=== PATIENT | female | born 1970 | race Caucasian/White ===

== ENCOUNTER 2017-07-05 10:08 | Emergency (ER) | payer OTHER ==
[2017-07-05 10:20] VITALS: BP 123/78; PULSE 67; TEMP 98.6; BMI 24.5
--- NOTE | 2017-07-05 11:03 | PDOC ---
History of Present Illness - General Chief Complaint: Back Pain Stated Complaint: BACK SPASM Time Seen by Provider: 07/05/17 11:02 History Source: Patient Exam Limitations: No Limitations - History of Present Illness Initial Comments: 07/05/17 11:12 Patient is a 47-year-old female with no past medical history who presents to the emergency department today complaining of 2 days of back spasm. Patient states that she feels her back spasm started due to sleeping in the same position all night. She states that she has been helping her who wasn't feeling well. Denies trauma, fall. She states that when walking she'll feel the spasm and have to stop. She's been taking ibuprofen and naproxen for her pain with little relief. Denies fevers, chills, saddle anesthesia, bladder or bowel incontinence. Past History - Travel Traveled outside of the country in the last 30 days: No Close contact w/someone who was outside of country & ill: No - Past Medical History Allergies/Adverse Reactions: Allergies Allergy/AdvReac Type Severity Reaction Status Date / Time No Known Allergies Allergy Verified 07/05/17 10:16 Home Medications: Ambulatory Orders Cyclobenzaprine HCl [Flexeril -] 10 mg PO HS #10 tablet 07/05/17 Ibuprofen 800 mg PO TID #30 tablet 07/05/17 Levothyroxine Sodium [Synthroid] 88 mcg PO ASDIR 07/05/17 COPD: No Thyroid Disease: Yes (HYPO) - Suicide/Smoking/Psychosocial Hx Smoking History: Never smoked Hx Alcohol Use: Yes (SOCIAL) Drug/Substance Use Hx: No Substance Use Type: None Review of Systems - Review of Systems Able to Perform ROS?: Yes Is the patient limited Vietnamese proficient: No Constitutional: No: Chills, Fever, Weakness : No: Burning, Incontinence Musculoskeletal: Yes: Back Pain, Muscle Pain. No: Neck Pain Neurological: No: Numbness, Paresthesia, Tingling, Weakness, Unsteady Gait All Other Systems: Reviewed and Negative *Physical Exam - Vital Signs Last Vital Signs Temp Pulse Resp BP Pulse Ox 98.6 F 67 20 123/78 98 07/05/17 10:12 07/05/17 10:12 07/05/17 10:12 07/05/17 10:12 07/05/17 10:12 - Physical Exam Comments: 07/05/17 11:15 GENERAL: Well developed, well nourished. Awake and alert. No acute distress. HEENT: Normocephalic, atraumatic. PERRLA, EOMI. No conjunctival pallor. Sclera are non- icteric. Moist mucous membranes. Oropharynx is clear. NECK: Supple. Full ROM. No JVD. Carotid pulses 2+ and symmetric, without bruits. No thyromegaly. No lymphadenopathy. CARDIOVASCULAR: Regular rate and rhythm. No murmurs, rubs, or gallops. Distal pulses are 2+ and symmetric. PULMONARY: No evidence of respiratory distress. Lungs clear to auscultation bilaterally. No wheezing, rales or rhonchi. ABDOMINAL: Soft. Non-tender. Non-distended. No rebound or guarding. No organomegaly. Normoactive bowel sounds. MUSCULOSKELETAL Decreased ROM of the back with flexion of the back. TTP of the R and L paraspinous muscles at the level of L1-L3. (-) flip test b/l. Normal range of motion at all other joints. No bony deformities. No CVA tenderness. EXTREMITIES: No cyanosis. No clubbing. No edema. No calf tenderness. SKIN: Warm and dry. Normal capillary refill. No rashes. No jaundice. NEUROLOGICAL: Alert, awake, appropriate. Cranial nerves 2-12 intact. No deficits to light touch and temperature in face, upper extremities and lower extremities. No motor deficits in the in face, upper extremities and lower extremities. Normoreflexic in the upper and lower extremities. Normal speech. Toes are down- going bilaterally. Gait is normal without ataxia. PSYCHIATRIC: Cooperative. Good eye contact. Appropriate mood and affect. Medical Decision Making - Medical Decision Making 07/05/17 11:16 Patient is a 47-year-old female with no past medical history who presents with 2 days of back spasm. Palpable spasm to the right lower and left lower paraspinous muscles with a negative flip test. No midline tendereness. No concerning physical findings or review of history. We'll treat with Toradol at this time. Send home with prescription for Flexeril. Will DC home at this time with ortho follow-up. *DC/Admit/Observation/Transfer Diagnosis at time of Disposition: Low back pain Qualifiers: Chronicity: acute Back pain laterality: bilateral Sciatica presence: without sciatica Qualified Code(s): M54.5 - Low back pain - Discharge Dispostion Disposition: HOME Condition at time of disposition: Good Admit: No - Prescriptions Prescriptions: Cyclobenzaprine HCl [Flexeril -] 10 mg PO HS #10 tablet Ibuprofen 800 mg PO TID #30 tablet - Referrals Referrals: Krzysztof Zhang MD [Staff Physician] - Bobby Covarrubias MD [Staff Physician] - - Patient Instructions Printed Discharge Instructions: DI for Low Back Pain Additional Instructions: You have low back pain due to a muscle spasm. Please take ibuprofen 800 mg 3 times a day not to exceed 3000 mg a day. You were also prescribed Flexeril. Please take this medication every 8 hours for the first day. Then take the medication before you go to bed. Do not drive after taking this medication as it may make you sleepy. You may use warm compresses on your back to help with her symptoms. Please follow-up with your primary care doctor. If your symptoms do not resolve in 3-5 days, follow-up with orthopedics. A referral has been provided for you. Return to the emergency department if you have worsening back pain, bladder or bowel incontinence, numbness and tingling in her legs, changes in the way you walk, or any new or worsening symptoms. - Post Discharge Activity Forms/Work/School Notes: Back to Work
[2017-07-05] MEDS ORDERED: KETOROLAC TROMETHAMINE 60 MG/2 ML VIAL IM ONE (11:12)
[2017-07-05] MEDS ORDERED: KETOROLAC TROMETHAMINE 60 MG/2 ML VIAL ONE (11:15)
== END 2017-07-05 11:33 | disposition home or self-care (01) ==
LOC: JER 10:08 → JERFT 10:08
PROC: 3E0233Z Introduction of Anti-inflammatory into Muscle, Percutaneous Approach (ICD-10-PCS; principal; 2017-07-05)
DX: M62.830 Muscle spasm of back (principal); X50.1XXA Overexertion from prolonged static or awkward postures, initial encounter; Y93.84 Activity, sleeping; Y92.032 Bedroom in apartment as the place of occurrence of the external cause
CPT/HCPCS: 99281-25

== ENCOUNTER 2019-03-27 10:36 | Emergency (ER) | payer OTHER ==
--- NOTE | 2019-03-27 10:47 | PDOC ---
History of Present Illness - General Chief Complaint: Back Pain Stated Complaint: BACK PAIN Time Seen by Provider: 03/27/19 10:47 History Source: Patient - History of Present Illness Initial Comments: 03/27/19 13:46 HPI: This 49-year-old female presented to the emergency room with a complaint of lower back pain. She states this is happened to her about a year and a half ago prior. She has taken Motrin without any relief. She is now presenting here radiating down her right buttocks. She does not remember any recent trauma. 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 Chief Compliant: Lower back radiating right leg Pain location: Lower back pain Duration: For a week Modifying factors: None Quality: Radiating: Severity: Time: PMH: Lower back pain in the past FH: Pt has not recently traveled outside the country in the last 30 days. Pt has not been in contact with people who have traveled out of the country, in contact with people who have been ill with fever, n, v, d. SH: smoking use: NONE illicit drug use: NONE alcohol use: NONE employment/educational status: court worker sexual history: PSH: Denies Home med use noted on AUG Allergies: NKA Past History - Past Medical History Allergies/Adverse Reactions: Allergies Allergy/AdvReac Type Severity Reaction Status Date / Time No Known Allergies Allergy Verified 03/27/19 10:43 Home Medications: Ambulatory Orders Ibuprofen 800 mg PO TID #30 tablet 07/05/17 Levothyroxine Sodium [Synthroid] 88 mcg PO ASDIR 07/05/17 Cyclobenzaprine HCl [Flexeril -] 10 mg PO HS #10 tablet 03/27/19 COPD: No Thyroid Disease: Yes (HYPO) - Psycho Social/Smoking Cessation Hx Smoking History: Never smoked Hx Alcohol Use: No Drug/Substance Use Hx: No Substance Use Type: None Review of Systems - Review of Systems Able to Perform ROS?: Yes Comments:: 03/27/19 13:51 General statement: Lower back pain Hematology: neg history of bleeding/blood thinners Skin: Neg for lesions, rash, bruising. HEENT: Neg symptoms Respiratory: Neg SOB or difficulty in breathing Cardiac: Neg chest pain GI: Neg pain, n/v : Neg problems on voiding MS: Neg for joint pain/stiffness, no edema with the exception of lower back pain radiating down to the right buttocks cheek. No numbness or tingling radiating down the leg Neuro: Neg for LOC, weakness, Endocrine: Neg for excess thirst/hunger, cold/heat intolerance, excess sweating Allergies: Neg for allergies *Physical Exam - Vital Signs Last Vital Signs Temp Pulse Resp BP Pulse Ox 98.4 F 75 18 112/75 99 03/27/19 10:41 03/27/19 10:41 03/27/19 10:41 03/27/19 10:41 03/27/19 10:41 - Physical Exam Comments: 03/27/19 13:52 General Appearance: This well appearing 49-year-old female V/S: hemodynamically stable, afebrile Skin: WNL of pt's skin color, no signs of pallor, mottling, cyanosis Head:symmetrical Eyes: EOM's intact, PERRLA Ears: denies pain Nose: patent Throat: lips, teeth, gums, tongue, buccal mucos pink and moist Lungs: Chest symmetry equal. Cap refill <3 seconds. Lung sounds clear Cardiac: PMI at R 4MCL space, pos S1 and S2, regular rate. Abdomen: Soft, round, nontender : Not observed Muscularskeletal: Gait steady, ambulated in to ER, no edema +PMS with complains of lower back pain Neuro: AAOx3, cognitively intact, speech clear and appropriate. Medical Decision Making - Medical Decision Making 03/27/19 13:53 Patient presented with lower back pain that was radiating down to her right buttocks cheek. At this time patient has some pain on palpation. She does not have any neurological deficits and is able to ambulate. At this time giving her a shot of Toradol for anti-inflammatory and sending her with Flexeril to her primary pharmacy. She states that that is what she took a year and a half ago which helped greatly. She has any further problems I suggested that she follow-up with her primary doctor. Discharge - Discharge Information Problems reviewed: Yes Clinical Impression/Diagnosis: Low back pain Qualifiers: Chronicity: acute Back pain laterality: bilateral Sciatica presence: with sciatica Sciatica laterality: sciatica of right side Qualified Code(s): M54.41 - Lumbago with sciatica, right side Disposition: HOME - Admission No - Additional Discharge Information Prescriptions: Cyclobenzaprine HCl [Flexeril -] 10 mg PO HS #10 tablet - Follow up/Referral - Patient Discharge Instructions Patient Printed Discharge Instructions: DI for Low Back Pain Additional Instructions: Discharge instructions -take motrin and flexeril (prescribed) for pain and muscle relaxing -use heat for relief -no heavy lifting and bending - Post Discharge Activity Work/Back to School Note: Back to Work
[2019-03-27] MEDS ORDERED: KETOROLAC TROMETHAMINE 30 MG/1 ML VIAL IM ONE (10:54)
[2019-03-27 11:02] VITALS: BP 112/75; PULSE 75; TEMP 98.4; BMI 24.9
[2019-03-27] MEDS ORDERED: KETOROLAC TROMETHAMINE 30 MG/1 ML VIAL ONE (11:09)
== END 2019-03-27 11:23 | disposition home or self-care (01) ==
LOC: JER 10:36
PROC: 3E0233Z Introduction of Anti-inflammatory into Muscle, Percutaneous Approach (ICD-10-PCS; principal; 2019-03-27)
DX: M54.41 Lumbago with sciatica, right side (principal)
CPT/HCPCS: 99281-25

== ENCOUNTER 2019-06-26 12:03 | Emergency (ER) | payer OTHER ==
[2019-06-26 12:26] VITALS: BP 124/73; PULSE 75; TEMP 98.4; BMI 24.5
[2019-06-26] MEDS ORDERED: guaiFENesin/D-METHORPHAN HB 10 ML UNIT-DOSE CUPS PO ONE (13:00)
[2019-06-26] MEDS ORDERED: IBUPROFEN 600 MG TABLET (FP) PO ONE ×2 (13:00→13:09)
[2019-06-26] MEDS ORDERED: guaiFENesin/D-METHORPHAN HB 10 ML UNIT-DOSE CUPS ONE (13:09)
--- NOTE | 2019-06-26 13:16 | PDOC ---
History of Present Illness - General Chief Complaint: Respiratory Stated Complaint: COLD SYMPTOMS Time Seen by Provider: 06/26/19 12:26 History Source: Patient Exam Limitations: No Limitations Past History - Travel Traveled outside of the country in the last 30 days: No Close contact w/someone who was outside of country & ill: No - Past Medical History Allergies/Adverse Reactions: Allergies Allergy/AdvReac Type Severity Reaction Status Date / Time No Known Allergies Allergy Verified 06/26/19 12:25 Home Medications: Ambulatory Orders Ibuprofen 800 mg PO TID #30 tablet 07/05/17 Levothyroxine Sodium [Synthroid] 88 mcg PO ASDIR 07/05/17 Cyclobenzaprine HCl [Flexeril -] 10 mg PO HS #10 tablet 03/27/19 Benzonatate [Tessalon Pearls -] 100 mg PO TID #21 capsule 06/26/19 Ibuprofen 600 mg PO Q6H #30 tablet 06/26/19 Pseudoephedrine HCl [Pseudoephedrine ER] 120 mg PO BID #20 tablet.er 06/26/19 COPD: No Thyroid Disease: Yes (HYPO) - Psycho Social/Smoking Cessation Hx Smoking History: Never smoked Hx Alcohol Use: No Drug/Substance Use Hx: No Substance Use Type: None Review of Systems - Review of Systems Able to Perform ROS?: Yes Comments:: 06/26/19 13:13 CONSTITUTIONAL: Absent: Fever, chills, body aches, diaphoresis, generalized weakness, malaise, loss of appetite HEENT: Present: rhinorrhea, nasal congestion, throat pain. Absent: difficulty swallowing, mouth swelling, ear pain, eye pain, visual Changes CARDIOVASCULAR: Absent: chest pain, loss of consciousness, palpitations, irregular heart rate, peripheral edema RESPIRATORY: Present: Cough Absent: shortness of breath, dyspnea with exertion, orthopnea, wheezing, stridor, hemoptysis GASTROINTESTINAL: Absent: abdominal pain, abdominal distension, nausea, vomiting, diarrhea, constipation, melena, hematochezia SKIN: Absent: rash, itching, pallor NEUROLOGIC: Absent: headache, focal weakness or paresthesias, dizziness, unsteady gait, seizure, mental status changes, bladder or bowel incontinence Is the patient limited Citizen Of [place] proficient: No *Physical Exam - Vital Signs Last Vital Signs Temp Pulse Resp BP Pulse Ox 98.4 F 75 18 124/73 99 06/26/19 12:23 06/26/19 12:23 06/26/19 12:23 06/26/19 12:23 06/26/19 12:23 - Physical Exam 06/26/19 13:14 GENERAL: The patient is awake, alert, and fully oriented, in no acute distress. HEAD: Normal with no signs of trauma. EYES: Pupils equal, round and reactive to light, extraocular movements intact, sclera anicteric, conjunctiva clear. HEENT: No nasal congestion or rhinorrhea. No sinus Tenderness. Mucous membranes are moist. No tonsillar erythema, exudate or edema. Uvula is midline. No TM bulging , dullness or erythema Lungs: Clear to auscultation bilateral with no wheezes rales or rhonchi. Good aeration to the bases. Normal bilateral excursion. EXTREMITIES: Normal range of motion, no edema. NEUROLOGICAL: Normal speech, normal gait. PSYCH: Normal mood, normal affect. SKIN: Warm, Dry, normal turgor, no rashes or lesions noted. ED Treatment Course - Medications Given in the ED: ED Medications Discontinued Medications Generic Name Dose Route Start Last Admin Trade Name Freq PRN Reason Stop Dose Admin Guaifenesin 10 ml 06/26/19 13:00 06/26/19 13:10 Robitussin Dm - PO 06/26/19 13:01 10 ml ONCE ONE Administration Ibuprofen 600 mg 06/26/19 13:00 06/26/19 13:10 Motrin - PO 06/26/19 13:01 600 mg ONCE ONE Administration Medical Decision Making - Medical Decision Making 06/26/19 13:14 Patient is a 49-year-old female with past medical history of hypothyroidism, presents to the ER today for 3 days of cough and sore throat. Her family members are both here with similar symptoms. She states the cough is productive with green/yellow sputum. She states she took NyQuil last night with some relief of her symptoms. Denies fevers, chills, nausea, vomiting, diarrhea, difficulty breathing and shortness of breath. A/P: URI On exam lungs are clear to auscultation bilaterally with no wheezes rales or rhonchi. Throat is nonerythematous without exudate or edema. Centor criteria is a 0, will defer strep testing Rapid flu sent. Motrin and Robitussin given for symptoms Likely a viral illness Reevaluate 06/26/19 14:12 Flu negative Likely a viral URI/common cold All other family members negative for flu and strep Will dc home with symptomatic relief and PCP follow up I discussed the physical exam findings, ancillary test results and final diagnoses with the patient. I answered all of the patient's questions. The patient was satisfied with the care received and felt comfortable with the discharge plan and treatment plan. The Patient agrees to follow up with the primary care physician/specialist within 24-72 hours. Return precautions were given. Discharge - Discharge Information Problems reviewed: Yes Clinical Impression/Diagnosis: URI (upper respiratory infection) Qualifiers: URI type: unspecified viral URI Qualified Code(s): J06.9 - Acute upper respiratory infection, unspecified Condition: Stable Disposition: HOME - Admission No - Follow up/Referral Referrals: Nghia Verdin MD [Staff Physician] - - Patient Discharge Instructions Patient Printed Discharge Instructions: DI for Viral Upper Respiratory Infection -- Adult Additional Instructions: You have an upper respiratory infection, or the common cold. Your flu testing was negative today. Please take Motrin 600 mg every 6 hours as needed for pain not to exceed 3000 mg a day. Take the Tessalon Perles and Sudafed as directed for your symptoms. Drink plenty of fluids. Cough drops and warm tea may help your symptoms as well. Please follow up with her primary care doctor this week. Return to the emergency department if you have difficulty breathing, shortness of breath, worsening pain, nausea, vomiting or if you have any changes in your symptoms. - Post Discharge Activity Work/Back to School Note: Back to Work
== END 2019-06-26 14:24 | disposition home or self-care (01) ==
LOC: JERFT 12:03
DX: J06.9 Acute upper respiratory infection, unspecified (principal); B97.89 Other viral agents as the cause of diseases classified elsewhere; E03.9 Hypothyroidism, unspecified
CPT/HCPCS: 87804; 99281-25

== ENCOUNTER 2019-08-30 20:07 | Inpatient (IN) | payer OTHER ==
[2019-08-30] MEDS ORDERED: SODIUM CHLORIDE 1,000 ML IV STA (20:17)
[2019-08-30] MEDS ORDERED: FAMOTIDINE 20 MG/50 ML IVPB 20 MG/50 ML MG IVPB ONE ×2 (20:17→22:51)
--- NOTE | 2019-08-30 20:21 | PDOC ---
Rapid Medical Evaluation Chief Complaint: Pain Time Seen by Provider: 08/30/19 20:11 Medical Evaluation: Allergies Allergy/AdvReac Type Severity Reaction Status Date / Time No Known Allergies Allergy Verified 06/26/19 12:25 08/30/19 20:18 I have performed a brief in-person evaluation of this patient. The patient presents with a chief complaint of: Pt with epigastric abdominal pain that radiates to her back x 4 days. No fevers. No n/v/d. "Feels like hunger pains". Had gallstones 12 years ago but never had a cholecystectomy. Pertinent physical exam findings: stable. Moderate epigastric and RUQ abdominal pain. + Woodard's sign. I have ordered the following: saline lock, labs, US, pepcid The patient will proceed to the ED for further evaluation Discharge Disposition - Diagnosis Abdominal pain - Referrals - Patient Instructions - Post Discharge Activity
--- NOTE | 2019-08-30 22:19 | PDOC ---
History of Present Illness - General Chief Complaint: Pain Stated Complaint: ABD PAIN Time Seen by Provider: 08/30/19 20:11 History Source: Patient, Old Records Exam Limitations: No Limitations - History of Present Illness Initial Comments: 08/30/19 22:18 Aleah Salvador is a 49F with PMH hypothyroidism on Synthroid presenting with epigastric abdominal pain. Reports 4 days of constant 7/10 RUQ abdominal pain, worse with positions, unrelated to meals, goes to bed and wakes up with pain. Denies any GB disease or pancreatitis, has history of renal stones but says this pain is different, also has history of gastritis a long time ago but has not taken any NSAIDs or alcohol recently, no history of pancreatitis. No recent trauma to abdomen. Denies fever, chills, nausea, vomiting, constipation, diarrhea, dizziness, urinary symptoms. Has had 3 , 3 children aged 18, 14, 11. Has had tubal ligation, low risk for . LMP ended 4 days ago. Denies any vaginal bleeding or discharge. NKDA. Only med is Synthroid. No abdominal surgeries. Denies alcohol/drug/tobacco use Past History - Past Medical History Allergies/Adverse Reactions: Allergies Allergy/AdvReac Type Severity Reaction Status Date / Time No Known Allergies Allergy Verified 08/30/19 20:20 Home Medications: Ambulatory Orders Ibuprofen 800 mg PO TID #30 tablet 07/05/17 Levothyroxine Sodium [Synthroid] 88 mcg PO ASDIR 07/05/17 Cyclobenzaprine HCl [Flexeril -] 10 mg PO HS #10 tablet 03/27/19 Benzonatate [Tessalon Pearls -] 100 mg PO TID #21 capsule 06/26/19 Ibuprofen 600 mg PO Q6H #30 tablet 06/26/19 Pseudoephedrine HCl [Pseudoephedrine ER] 120 mg PO BID #20 tablet.er 06/26/19 COPD: No Thyroid Disease: Yes (HYPO) Other medical history: gallstones - Psycho Social/Smoking Cessation Hx Smoking History: Never smoked Have you smoked in the past 12 months: No Information on smoking cessation initiated: No Hx Alcohol Use: No Drug/Substance Use Hx: No Substance Use Type: None Review of Systems - Review of Systems Able to Perform ROS?: Yes Constitutional: No: Chills, Diaphoresis, Fever, Night Sweats, Weakness HEENTM: No: Symptoms Reported, Dental Problems Respiratory: No: Symptoms reported, Cough, Shortness of Breath, Wheezing Cardiac (ROS): No: Chest Pain, Irregular Heart Rate, Lightheadedness, Palpitations, Syncope ABD/GI: Yes: Abdominal cramping. No: Blood Streaked Bowels, Constipated, Diarrhea, Nausea, Poor Appetite, Poor Fluid Intake, Vomiting : No: Symptoms Reported Musculoskeletal: Yes: Back Pain Integumentary: No: Symptoms Reported Neurological: No: Symptoms reported Endocrine: No: Symptoms Reported Hematologic/Lymphatic: No: Symptoms Reported All Other Systems: Reviewed and Negative *Physical Exam - Vital Signs Last Vital Signs Temp Pulse Resp BP Pulse Ox 98.1 F 68 18 139/74 100 08/30/19 20:17 08/30/19 20:17 08/30/19 20:17 08/30/19 20:17 08/30/19 20:17 - Physical Exam General Appearance: Yes: Nourished, Appropriately Dressed, Other (resting comfortably in bed in good spirits in NAD). No: Apparent Distress HEENT: positive: EOMI, FAUZIA, Normal ENT Inspection, Normal Voice, Symmetrical, Pharynx Normal. negative: Scleral Icterus (R), Scleral Icterus (L), Pharyngeal Erythema, Tonsillar Exudate, Tonsillar Erythema Neck: positive: Trachea midline, Normal Thyroid, Supple. negative: Tender, Rigid, Lymphadenopathy (R), Lymphadenopathy (L) Respiratory/Chest: positive: Lungs Clear, Normal Breath Sounds. negative: Chest Tender, Respiratory Distress, Accessory Muscle Use, Crackles, Rales, Rhonchi, Stridor, Wheezing Cardiovascular: positive: Regular Rhythm, Regular Rate. negative: Murmur Gastrointestinal/Abdominal: positive: Normal Bowel Sounds, Tender (RUQ), Flat, Soft. negative: Organomegaly, Distended, Guarding, Rebound, Hernia Musculoskeletal: positive: Normal Inspection. negative: CVA Tenderness, Vertebral Tenderness Extremity: positive: Normal Capillary Refill, Normal Inspection, Normal Range of Motion, Pelvis Stable. negative: Tender, Pedal Edema, Swelling, Calf Tenderness Integumentary: positive: Normal Color, Dry, Warm. negative: Cyanotic, Rash Neurologic: positive: Fully Oriented, Alert, Normal Mood/Affect, Normal Response ED Treatment Course - LABORATORY CBC & Chemistry Diagram: 08/30/19 22:47 08/30/19 22:47 Medical Decision Making - Medical Decision Making 08/30/19 23:08 Patient presents with 4 days of constant abdominal pain without N/V/C/D or trauma, ddx includes GB pathology, pancreatitis, gastritis, appy, colitis, diverticultis, renal stones. VS stable, only exam finding is tenderness to RUQ. RUQ US shows gallstones without acute cholecystitis. Ordering CMP/CBC for eval lytes and infection, lipase for eval pancreatitis, UA/UC for eval UTI. Low threshold to get CTAP with contrast to evaluate for intraabdominal pathology. 08/30/19 23:38 Labs notable for: - Hgb 9.8 - CMP WNL - lipase 200 08/31/19 00:[address] Velázquez, plan for CTAP and likely dispo home if no findings on CT. Discharge - Discharge Information Problems reviewed: Yes Clinical Impression/Diagnosis: Gall stones Abdominal pain Qualifiers: Abdominal location: right upper quadrant Qualified Code(s): R10.11 - Right upper quadrant pain Condition: Stable - Follow up/Referral Referrals: Basilio Candelaria MD [Primary Care Provider] - - Patient Discharge Instructions Patient Printed Discharge Instructions: DI for Abdominal Pain-Adult Additional Instructions: Today you were evaluated for abdominal pain. Your blood works do not show any problems. Your ultrasound shows that you have gallstones but no infection in your gallbladder. Your CT scan shows: Your do not have any diseases that need emergency treatment. Please follow-up with your primary doctor in the next 3 days for further care. If you experience fever, chills, nausea, vomiting, constipation, diarrhea, or any other new or concerning symptoms,please return to the emergency room. - Post Discharge Activity Work/Back to School Note: Back to Work
[2019-08-30] MEDS ORDERED: FAMOTIDINE 20 MG/50 ML IVPB 50 ML IVPB ONE (22:43)
[2019-08-30] MEDS ORDERED: SODIUM CHLORIDE 0.9% 500 ML INFUS.BAG IV ONE (22:43)
[2019-08-30] MEDS ORDERED: MAG HYDROX/AL HYDROX/SIMETH 30 ML UNIT-DOSE CUP PO ONE (22:43)
[2019-08-30] MEDS ORDERED: ACETAMINOPHEN 1000 MG/100 ML VIAL (NON FORMULARY) IVPB ONE (22:43)
[2019-08-30] MEDS ORDERED: ACETAMINOPHEN INJECTION 100 ML IVPB ONE (22:50)
[2019-08-30] MEDS ORDERED: MAG HYDROX/AL HYDROX/SIMETH 30 ML UNIT-DOSE CUP ONE (22:51)
[2019-08-30 23:26] LABS: BASO % 0.5 % (0-2.0); EOS % 2.3 % (0-4.5); HEMATOCRIT 30.3 % (32.4-45.2); HEMOGLOBIN 9.8 GM/dL (10.7-15.3); LYMPH % 31.5 % (8-40); MCH 31.7 pg (25.7-33.7); MCHC 32.4 g/dl (32.0-36.0); MEAN CELL VOLUME 97.8 fl (80-96); MEAN PLT VOLUME 7.2 fl (7.5-11.1); MONO % 4.3 % (3.8-10.2); NEUT % 61.4 % (42.8-82.8); PLATELET COUNT 429 K/MM3 (134-434); RBC 3.09 M/mm3 (3.60-5.2); RDW 13.6 % (11.6-15.6); WHITE BLOOD COUNT 7.7 K/mm3 (4.0-10.0)
[2019-08-30 23:54] LABS: BILIRUBIN,TOTAL 0.7 mg/dL (0.2-1); BLOOD UREA NITROGEN 12.4 mg/dL (7-18); CALCIUM 9.1 mg/dL (8.5-10.1); CREATININE 0.5 mg/dL (0.55-1.3); POTASSIUM 3.8 mmol/L (3.5-5.1); TOT PROT 7.3 g/dl (6.4-8.2)
--- NOTE | 2019-08-30 23:56 | PDOC ---
*Physical Exam - Vital Signs Last Vital Signs Temp Pulse Resp BP Pulse Ox 98.2 F 68 18 113/76 98 08/30/19 23:37 08/30/19 23:37 08/30/19 20:17 08/30/19 23:37 08/30/19 23:37 ED Treatment Course - LABORATORY CBC & Chemistry Diagram: 08/30/19 22:47 08/30/19 22:47 - ADDITIONAL ORDERS Additional order review: Laboratory Results 08/30/19 08/30/19 23:29 22:47 Sodium 140 Potassium 3.8 Chloride 105 Carbon Dioxide 28 Anion Gap 8 BUN 12.4 Creatinine 0.5 L Est GFR (CKD-EPI)AfAm 131.72 Est GFR (CKD-EPI)NonAf 113.65 Random Glucose 79 Calcium 9.1 Total Bilirubin 0.7 AST 26 ALT 24 Alkaline Phosphatase 57 Total Protein 7.3 Albumin 4.0 Lipase 202 Serum , Qual Negative 08/30/19 22:47 RBC 3.09 L MCV 97.8 H MCHC 32.4 RDW 13.6 D MPV 7.2 L Neutrophils % 61.4 Lymphocytes % 31.5 Monocytes % 4.3 Eosinophils % 2.3 D Basophils % 0.5 - Medications Given in the ED: ED Medications Discontinued Medications Generic Name Dose Route Start Last Admin Trade Name Freq PRN Reason Stop Dose Admin Acetaminophen 1,000 mg 08/30/19 22:43 08/30/19 23:15 Ofirmev Injection - IVPB 08/30/19 22:44 1,000 mg ONCE ONE Administration Al Hydroxide/Mg Hydroxide 30 ml 08/30/19 22:43 08/30/19 23:15 Mylanta Oral Suspension - PO 08/30/19 22:44 30 ml ONCE ONE Administration Sodium Chloride 1,000 mls @ 1,000 mls/hr 08/30/19 20:17 08/30/19 23:15 Normal Saline - IV 08/30/19 21:16 1,000 mls/hr ASDIR STA Administration Famotidine/Sodium Chloride 20 mg in 50 mls @ 100 mls/hr 08/30/19 20:17 08/30/19 23:15 Pepcid 20 Mg Premixed Ivpb - IVPB 08/30/19 20:46 100 mls/hr ONCE ONE Administration Medical Decision Making - Medical Decision Making 08/30/19 23:[address] Spears Reports 4 days of constant 7/10 RUQ abdominal pain, worse with positions, unrelated to meals, goes to bed and wakes up with pain. Denies any GB disease or pancreatitis, has history of renal stones but says this pain is different, also has history of gastritis a long time ago but has not taken any NSAIDs or alcohol recently, no history of pancreatitis. No recent trauma to abdomen. Denies fever, chills, nausea, vomiting, constipation, diarrhea, dizziness, urinary symptoms. RUQ constant pain. no n/v/d. US shows cholelithiasis. pending CT labs wnl. has received fluids, pepcid, maalox, ofirmev. will reassess. 08/31/19 03:52 pt still having pain, tenderness in RUQ. CTAP: Lung bases are clear. The visualized cardiac chambers are normal size and configuration. Gallstones and pericholecystic edema indicates acute cholecystisi. No biliary duct dilation. A left hepatic lobe cyst is noted. Normal pancreas, spleen, adrenal glands and kidneys. The stomach and abdominal small and large bowel are normal. There is no aortic aneurysm. There is no significant retroperitoneal lymphadenopathy. The pelvic small and large bowel are normal. The appendix is normal. 3.7 cm right ovarian cyst is normal. The uterus and left adnexal structures are normal. Urinary bladder is unremarkable. Given CT findings, persistent tenderness, will admit. may benefit from ercp or mrcp. zosyn given. pt agrees to admission 08/31/19 04:09 08/31/19 04:14 ekg: nsr at 63bpm. normal intervals. no los or depressions. no signs of acute ischemia. Discharge - Discharge Information Problems reviewed: Yes Clinical Impression/Diagnosis: Gall stones, Cholecystitis Abdominal pain Qualifiers: Abdominal location: right upper quadrant Qualified Code(s): R10.11 - Right upper quadrant pain Condition: Stable - Admission Yes - Follow up/Referral Referrals: Basilio Candelaria MD [Primary Care Provider] - - Patient Discharge Instructions Patient Printed Discharge Instructions: DI for Abdominal Pain-Adult Additional Instructions: Today you were evaluated for abdominal pain. Your blood works do not show any problems. Your ultrasound shows that you have gallstones but no infection in your gallbladder. Your CT scan shows: Your do not have any diseases that need emergency treatment. Please follow-up with your primary doctor in the next 3 days for further care. If you experience fever, chills, nausea, vomiting, constipation, diarrhea, or any other new or concerning symptoms,please return to the emergency room. - Post Discharge Activity Work/Back to School Note: Back to Work
--- NOTE | 2019-08-31 01:55 | PDOC ---
Documentation entered by Camille Aponte SCRIBE, acting as scribe for Zenaida Elizondo MD. Zenaida Elizondo MD: This documentation has been prepared by the Fay [place] val[place] Brenda, SCRIBE, under my direction and personally reviewed by me in its entirety. I confirm that the documentation accurately reflects all work, treatment, procedures, and medical decision making performed by me. Attending Attestation - Resident Resident Name: ReganRoss - ED Attending Attestation I have performed the following: I have examined & evaluated the patient, The case was reviewed & discussed with the resident, I agree w/resident's findings & plan, Exceptions are as noted - HPI HPI: 08/30/19 22:38 The patient is a 49 year old female with a significant PMH of hypothyroidism who presents to the ED for evaluation of epigastric abdominal pain that radiates to her back, stating it feels like sharp, "hunger pain". Patient reports that she had gallstones 12 years ago, but never had a cholecystectomy. The patient denies trauma. Denies chest pain, shortness of breath, headache and dizziness. Denies fever, chills, nausea, vomiting, diarrhea and constipation. Denies dysuria, frequency, urgency and hematuria. Allergies: NKA PCP: Bari 08/30/19 23:56 - Physicial Exam PE: 08/30/19 23:55 49-year-old female has had 4 days of constant right upper quadrant pain not associated with fever chills nausea or vomiting. Past surgical history tubal ligation 08/30/19 23:55 Head normocephalic atraumatic Neck is supple no JVD Lungs are clear to auscultation bilaterally CVS regular rate and rhythm S1-S2 Abdomen is exquisitely tender in upper quadrant underneath her right anterior rib cage, she has no lower quadrant tenderness or rebound No flank tenderness at this time Skin warm and dry Neuro alert oriented x3, ambulatory Psych appropriate behavior 08/31/19 01:55 - Medical Decision Making 08/31/19 01:55 Labs reviewed and she does a mild hemoglobin with hematocrit of 9.8 Chemistries are essentially unremarkable pt currently is awaiting her ct scan abd/pel case signed to Dr Mello 08/31/19 01:56
[2019-08-31 02:56] LABS: PH,URINE 5.5 (5.0-8.0); URINE APPEARANCE CLEAR; URINE BILIRUBIN NEGATIVE (NEGATIVE); URINE COLOR YELLOW; URINE GLUCOSE (UA) NEGATIVE (NEGATIVE); URINE KETONE TRACE (NEGATIVE); URINE LEUK ESTERASE NEGATIVE (NEGATIVE); URINE NITRITE NEGATIVE (NEGATIVE); URINE PROTEIN NEGATIVE (NEGATIVE); URINE UROBILINOGEN 0.2 mg/dL (0.2-1.0)
[2019-08-31] MEDS ORDERED: PIPERACILLIN/TAZOB 3.375 GM 3.375 GM in DEXTROSE 5%-WATER - 50 ML IVPB ONE (03:27)
--- NOTE | 2019-08-31 04:16 | HP ---
CHIEF COMPLAINT: abdominal pain PCP: Dr. Basilio Candelaria of [facility] HISTORY OF PRESENT ILLNESS: 49 y/o female PMH hypothyroidism and nephrolithiasis c/o abdominal pain. This has never happened before. The pain is located in the RUQ, started gradually 5 days ago, is aching in character (like an intense hunger), non- radiating, worsened with deep inspiration, constant and 8/10. She reports that she has experienced kidney stones and this is a different sensation. She is also denies exacerbation by coffee, juice, chocolate, recumbency, and other GERD provoking agents. She endorses vague back pain but she is unsure if it is related to abdominal pain. There was some relief with OTC ibuprofen. She denies hematuria, dysuria, hematochezia, and mucus in stool. LMP was 27 Aug 2019 and she had tubal ligation. She reports her GB is intact and so is her appendix. ER course was notable for: (1) US demonstrating stones in GB but no cholecystitis Denies FNVD, chills, and constipation No new meds/herbs, drugs/supplements No recent illness, sick contacts, or recent travel PAST MEDICAL HISTORY: hypothyroidism and nephrolithiasis Fam hx: denies PAST SURGICAL HISTORY: Hip surgery to correct inverted LE (1979), tubal ligation Social History: Smokin year in youth 2 cigarettes per day Alcohol: social Drugs: occasional marijuana use Works as outpatient case manager Allergies Pt reports NO allergies to medications, food, shellfish, or latex HOME MEDICATIONS: Medication Instructions Recorded Ibuprofen 800 mg PO TID #30 tablet 07/05/17 Levothyroxine Sodium [Synthroid] 88 mcg PO ASDIR 07/05/17 Cyclobenzaprine HCl [Flexeril -] 10 mg PO HS #10 tablet 03/27/19 Benzonatate [Tessalon Pearls -] 100 mg PO TID #21 capsule 06/26/19 Ibuprofen 600 mg PO Q6H #30 tablet 06/26/19 Pseudoephedrine HCl 120 mg PO BID #20 tablet.er 06/26/19 [Pseudoephedrine ER] REVIEW OF SYSTEMS CONSTITUTIONAL: Absent: fever, chills, diaphoresis, generalized weakness, malaise, loss of appetite, weight change HEENT: Absent: rhinorrhea, nasal congestion, throat pain, throat swelling, difficulty swallowing, mouth swelling, ear pain, eye pain, visual changes CARDIOVASCULAR: Absent: chest pain, syncope, palpitations, irregular heart rate, lightheadedness, peripheral edema RESPIRATORY: Absent: cough, shortness of breath, dyspnea with exertion, orthopnea, wheezing, stridor, hemoptysis GASTROINTESTINAL: Absent: abdominal pain, abdominal distension, nausea, vomiting, diarrhea, constipation, melena, hematochezia GENITOURINARY: Absent: dysuria, frequency, urgency, hesitancy, hematuria, flank pain, genital pain MUSCULOSKELETAL: Absent: myalgia, arthralgia, joint swelling, back pain, neck pain SKIN: Absent: rash, itching, pallor HEMATOLOGIC/IMMUNOLOGIC: Absent: easy bleeding, easy bruising, lymphadenopathy, frequent infections ENDOCRINE: Absent: unexplained weight gain, unexplained weight loss, heat intolerance, cold intolerance NEUROLOGIC: Absent: headache, focal weakness or paresthesias, dizziness, unsteady gait, seizure, mental status changes, bladder or bowel incontinence PSYCHIATRIC: Absent: anxiety, depression, suicidal or homicidal ideation, hallucinations. PHYSICAL EXAMINATION Vital Signs - 24 hr 08/30/19 08/30/19 20:17 23:37 Temperature 98.1 F 98.2 F Pulse Rate 68 Pulse Rate [ 68 Right Radial] Respiratory 18 Rate Blood Pressure 139/74 Blood Pressure 113/76 [Right Arm] O2 Sat by Pulse 100 98 Oximetry (%) GENERAL: AO x3 NAD HEAD: NCAT EYES: BRITT, EOMI, sclera anicteric, conjunctiva clear. No ptosis. ENT: Ears normal, nares patent, oropharynx clear without exudates, moist mucous membranes. NECK: Trachea midline, full range of motion, supple. LUNGS: CTAB , no wheezes, no crackles, no accessory muscle use. HEART: RRR, S1, S2 without murmur, rub or gallop. - ABDOMEN: TTP in RUQ. POS Woodard Sign. NEG Neha. No pain at McBurbey's point. Soft, nondistended, normoactive bowel sounds, no guarding, no rebound, no hepatosplenomegaly, no masses. EXTREMITIES: 2+ pulses, warm, well-perfused, no edema. NEUROLOGICAL: Cranial nerves II through XII grossly intact. Strength 5/5 in UE and LE in both distal and proximal flexors. Brachial reflex 2+ BL. Patellar reflex 2+ BL. No dysdiadochokinesia. FTN NEG. Babinski NEG. Normal speech. Gait not appreciated. PSYCH: Normal mood, normal affect. SKIN: Warm, dry, normal turgor, no rashes or lesions noted Laboratory Results - last 24 hr 08/30/19 08/30/19 08/30/19 22:47 22:47 23:29 WBC 7.7 RBC 3.09 L Hgb 9.8 L Hct 30.3 L D MCV 97.8 H MCH 31.7 MCHC 32.4 RDW 13.6 D Plt Count 429 D MPV 7.2 L Absolute Neuts (auto) 4.7 Neutrophils % 61.4 Lymphocytes % 31.5 Monocytes % 4.3 Eosinophils % 2.3 D Basophils % 0.5 Nucleated RBC % 0 Sodium 140 Potassium 3.8 Chloride 105 Carbon Dioxide 28 Anion Gap 8 BUN 12.4 Creatinine 0.5 L Est GFR (CKD-EPI)AfAm 131.72 Est GFR (CKD-EPI)NonAf 113.65 Random Glucose 79 Calcium 9.1 Total Bilirubin 0.7 AST 26 ALT 24 Alkaline Phosphatase 57 Total Protein 7.3 Albumin 4.0 Lipase 202 Serum , Qual Negative Urine Color Urine Appearance Urine pH Ur Specific [place] Urine Protein Urine Glucose (UA) Urine Ketones Urine Blood Urine Nitrite Urine Bilirubin Urine Urobilinogen Ur Leukocyte Esterase 08/31/19 00:00 WBC RBC Hgb Hct MCV MCH MCHC RDW Plt Count MPV Absolute Neuts (auto) Neutrophils % Lymphocytes % Monocytes % Eosinophils % Basophils % Nucleated RBC % Sodium Potassium Chloride Carbon Dioxide Anion Gap BUN Creatinine Est GFR (CKD-EPI)AfAm Est GFR (CKD-EPI)NonAf Random Glucose Calcium Total Bilirubin AST ALT Alkaline Phosphatase Total Protein Albumin Lipase Serum , Qual Urine Color Yellow Urine Appearance Clear Urine pH 5.5 Ur Specific [place] 1.015 Urine Protein Negative Urine Glucose (UA) Negative Urine Ketones Trace H Urine Blood Negative Urine Nitrite Negative Urine Bilirubin Negative Urine Urobilinogen 0.2 Ur Leukocyte Esterase Negative ASSESSMENT/PLAN: 49 y/o female PMH hypothyroidism and nephrolithiasis c/o abdominal pain c onsistent with cholelithiasis and biliary colic. # Cholelithiasis and biliary colic - Await final read on CT A/P - Pt/INR - Type and screen - NS - NPO - Ofirmev for pain # Macrocytic anemia - b12/folate # FEN - NS - Cont. to monitor - NPO # DVT ppx - SCD # Disposition - Admit to telemetry Miguel Angel Bourne MD Visit type - Emergency Visit Emergency Visit: Yes ED Registration Date: 08/31/19 Care time: The patient presented to the Emergency Department on the above date and was hospitalized for further evaluation of their emergent condition. - New Patient This patient is new to me today: Yes Date on this admission: 09/01/19 - Critical Care Critical Care patient: No ATTENDING PHYSICIAN STATEMENT I saw and evaluated the patient. I reviewed the resident's note and discussed the case with the resident. I agree with the resident's findings and plan as documented. SUBJECTIVE: OBJECTIVE: ASSESSMENT AND PLAN:
--- NOTE | 2019-08-31 04:52 | PN ---
Teaching Attending Note Name of Resident: Miguel Angel Bourne ATTENDING PHYSICIAN STATEMENT I saw and evaluated the patient. I reviewed the resident's note and discussed the case with the resident. I agree with the resident's findings and plan as documented. SUBJECTIVE: 49-year-old woman with a history of hypothyroidism presents complaining of epigastric pain for about 1 day, radiates to her back, sharp in nature. Patient reported remote history of gallstones about 12 years ago. Never had a cholecystectomy.Patient received 1 dose of Zosyn and metronidazole in the emergency room As well as IV Tylenol, Mylanta, IV fluid hydration, Pepcid. OBJECTIVE: Last Vital Signs Temp Pulse Resp BP Pulse Ox 98.2 F 68 18 113/76 98 08/30/19 23:37 08/30/19 23:37 08/30/19 20:17 08/30/19 23:37 08/30/19 23:37 Nontoxic-appearing woman in no apparent distress. Right upper quadrant tenderness is appreciated. Abnormal Lab Results 08/30/19 08/30/19 08/31/19 22:47 22:47 00:00 RBC 3.09 L Hgb 9.8 L Hct 30.3 L D MCV 97.8 H MPV 7.2 L Creatinine 0.5 L Urine Ketones Trace H CT of abdomen pelvis with contrast was performed. Lung bases are clear. Small and large bowels are normal. Appendix was normal. Noted to have acute cholecys titis. Chest x-ray reviewed ASSESSMENT AND PLAN: 49-year-old woman with acute cholecystitis Admit to [facility] No antibiotics at this time as patient is afebrile with normal vital signs and no leukocytosis If develops fever would send blood cultures and start empiric antibiotic therapy N.p.o. PT, PTT, type and screen Surgery consult Morphine IV as needed for pain management IV fluid hydration Zofran IV as needed if nausea or vomiting EKG #Macrocytic anemia Vitamin B12 TSH Iron studies Ferritin #Hypothyroidism Levothyroxine 88 mcg p.o. daily Send TSH DVT prophylaxisheparin subcutaneously
[2019-08-31] MEDS ORDERED: ACETAMINOPHEN 1000 MG/100 ML VIAL (NON FORMULARY) IVPB PRN ×2 (05:10→15:34)
[2019-08-31] MEDS ORDERED: SODIUM CHLORIDE 1,000 ML IV SCH ×2 (05:15→15:34)
[2019-08-31] MEDS ORDERED: ACETAMINOPHEN INJECTION 100 ML IVPB ONE (06:49)
[2019-08-31] MEDS ORDERED: LEVOTHYROXINE NA 112 MCG TABLET (FP) PO SCH (07:00)
[2019-08-31 07:05] LABS: BASO % 0.9 % (0-2.0); EOS % 3.8 % (0-4.5); HEMATOCRIT 26.4 % (32.4-45.2); LYMPH % 32.7 % (8-40); MCHC 34.2 g/dl (32.0-36.0); MEAN CELL VOLUME 96.4 fl (80-96); MEAN PLT VOLUME 6.9 fl (7.5-11.1); MONO % 4.8 % (3.8-10.2); NEUT % 57.8 % (42.8-82.8); PLATELET COUNT 368 K/MM3 (134-434); RBC 2.74 M/mm3 (3.60-5.2); RDW 13.6 % (11.6-15.6); WHITE BLOOD COUNT 5.7 K/mm3 (4.0-10.0)
[2019-08-31 07:33] LABS: ALBUMIN 3.3 g/dl (3.4-5.0); BILIRUBIN,TOTAL 0.8 mg/dL (0.2-1); BLOOD UREA NITROGEN 10.1 mg/dL (7-18); CALCIUM 8.2 mg/dL (8.5-10.1); CREATININE 0.5 mg/dL (0.55-1.3); MAGNESIUM 2.1 mg/dL (1.8-2.4); PHOSPHOROUS 3.2 mg/dL (2.5-4.9); POTASSIUM 3.9 mmol/L (3.5-5.1); TOT PROT 6.1 g/dl (6.4-8.2)
[2019-08-31 08:42] LABS: INR 0.98 (0.83-1.09); PROTHROMBIN TIME (PATIENT) 11.6 SEC (9.7-13.0)
[2019-08-31] MEDS ORDERED: PT OWN MED DRAWER 7, Y5N ONE (08:42)
[2019-08-31 08:45] LABS: ACTIVATED PTT 30.5 SECONDS (25.2-36.5)
--- NOTE | 2019-08-31 08:59 | CONSULT ---
- Consultation REQUESTING PROVIDER: Jake Boswell - General Surgery CONSULT REQUEST: We have been asked to surgically evaluate this patient for RUQ abd pain x5 days PCP: Adolfo Bahena MD HPI: Called to edi 49 yo female with PMHx as noted below. Presents to [facility] ED w/ c/o RUQ abd pain which began 5 days ago. States she first noticed it 5 days ago after eating a burger. Initially the pain was rated at 8/10. Took some OTC Ibuprofen which seem to alleviate the pain for a short stint. Pain however would come/go over the next couple of days. Not really eating. LMP 08/27/2019 (h/o tubal ligation). Received a dose of Zosyn in the ED. Denies n/v/f/c. Denies CP, palpitations, SOB or EASLEY. Denies hematuria, dysuria, flank pain, melana or hematochazia. Denies recent illness, sick contacts, recent travel or trauma. While in the ER shehad the following studies: 1. ABD U/S: cholilithiasis without sonographic Woodard's 2. CT A/P (w/ con): Lung bases are clear. Small and large bowels are normal. Appendix was normal. Noted to have acute cholecystitis. Allergies Pt reports NO allergies to medications, food, shellfish, or latex PMHx: Hypothyroidism Nephrolithiasis PSHx: Hip surgery to correct inverted LE (1979) Tubal ligation Home Med Synthroid 112 mcg PO daily 08/31/2019 Allergies: NKDA ROS: 12 system review conducted and all considered negative except for what's contained in the hPI. PE: GENERAL: A&O. NAD HEAD: NC. AT. EYES: PERRL, sclera anicteric, conjunctiva clear. NECK: Normal ROM, supple without lymphadenopathy, JVD, or masses. LUNGS: CTA bilat HEART: RRR ABDOMEN: Soft, RUQ ttp. + Woodard's. No hernias appreciated. MUSCULOSKELETAL: No CVAT bilat UE: 2+ pulses, warm, well-perfused. No cyanosis. Cap refill <2 seconds. No p eripheral edema. LE: 2+ pulses, warm, well-perfused. No calf tenderness. No peripheral edema. NEUROLOGICAL: Normal speech, gait not observed. PSYCH: Cooperative. Good eye contact. Appropriate mood and affect. SKIN: Warm, dry, normal turgor, no rashes or lesions noted. Last Vital Signs Temp Pulse Resp BP Pulse Ox 97.4 F L 61 18 108/75 100 08/31/19 05:20 08/31/19 05:20 08/31/19 05:20 08/31/19 05:20 08/31/19 05:20 CBC, BMP 08/31/19 06:33 08/31/19 06:33 Hepatic Panel Total Bilirubin 0.8 mg/dL (0.2-1) 08/31/19 06:33 AST 20 U/L (15-37) 08/31/19 06:33 ALT 21 U/L (13-61) 08/31/19 06:33 Alkaline Phosphatase 49 U/L (45-117) 08/31/19 06:33 Albumin 3.3 g/dl (3.4-5.0) L 08/31/19 06:33 INR, PTT INR 0.98 (0.83-1.09) 08/31/19 08:18 Problem List - Problems (1) Cholecystitis Assessment/Plan: Called to edi 49 yo female admitted with RUQ abd pain and ABD CT identified acute cholecystitis. Her lab work reviewed. No GI work-up needed as LFTs are normal. No need for further imaging. Patient is a little anemic (just finished her menses 08/27/2019) and is asymptomatic. 1. NPO 2. IVF 3. Added on to OR for lap pankaj, possible open to follow his scheduled cases. 4. Tylenol for fever > 100.4F 5. Pain management 6. Medical optimization 7. OOB and ambulate 8. No need for further antibiotics as patient received Zosyn in the ED. 9. Consent 10. Type and Screen Above plan discussed with Dr. Boswell and agrees. Code(s): K81.9 - CHOLECYSTITIS, UNSPECIFIED (2) Abdominal pain Code(s): R10.9 - UNSPECIFIED ABDOMINAL PAIN Qualifiers: Abdominal location: right upper quadrant Qualified Code(s): R10.11 - Right upper quadrant pain (3) Gall stones Code(s): K80.20 - CALCULUS OF GALLBLADDER W/O CHOLECYSTITIS W/O OBSTRUCTION Visit type - Case Type Case Type: ED Admission - Emergency Emergency Visit: Yes ED Registration Date: 08/31/19 Care time: The patient presented to the Emergency Department on the above date and was hospitalized for further evaluation of their emergent condition. - New patient This patient is new to me today: Yes Date on this admission: 08/31/19
[2019-08-31] MEDS ORDERED: HEPARIN NA (PORCINE) 5,000 UNITS/ML 1ML VIAL SQ SCH (10:00)
--- NOTE | 2019-08-31 10:14 | EKG ---
Test Reason : Blood Pressure : / mmHG Vent. Rate : 063 BPM Atrial Rate : 063 BPM P-R Int : 162 ms QRS Dur : 086 ms QT Int : 412 ms P-R-T Axes : 058 070 074 degrees QTc Int : 421 ms NORMAL SINUS RHYTHM NORMAL ECG WHEN COMPARED WITH ECG OF 26-FEB-2015 15:58, NO SIGNIFICANT CHANGE WAS FOUND Confirmed by Jb Hartman ([id number]) on 08/31/2019 10:13:25 AM Referred By: Confirmed By:Jb Hartman
[2019-08-31] MEDS ORDERED: PROPOFOL 20 ML ONE (11:15)
[2019-08-31] MEDS ORDERED: MIDAZOLAM HCL 2 MG/2 ML SINGLE DOSE VIAL ONE (11:15)
[2019-08-31] MEDS ORDERED: ROCURONIUM BROMIDE 50 MG/5 ML SYRINGE ONE (11:15)
[2019-08-31] MEDS ORDERED: DESFLURANE GAS 240 ML BOTTLE IH ONE (11:17)
[2019-08-31] MEDS ORDERED: BACITRACIN 15 GM TUBE TOPICAL OINTMENT ONE (11:19)
[2019-08-31 11:20] VITALS: BMI 25.6
[2019-08-31] MEDS ORDERED: FLU VACCINE QUAD 60 MCG/0.5 ML (MDV 19-20) IM ONE (12:00)
[2019-08-31] MEDS ORDERED: BUPIVACAINE HCL/PF 0.5% (5 MG/ML) 30 ML VIAL IJ ONE ×3 (12:29→12:50)
[2019-08-31] MEDS ORDERED: NEOSTIGMINE METHYLSULFATE 0.5 MG/ML - 10 ML MDV ONE (12:58)
[2019-08-31] MEDS ORDERED: GLYCOPYRROLATE 0.2 MG/1 ML VIAL ONE (12:59)
--- NOTE | 2019-08-31 13:25 | OP ---
Operative Note - Note: Operative Date: 08/31/19 Pre-Operative Diagnosis: Acute cholecystitis/cholelithiasis Operation: Laprascopic Cholecystectomy Findings: Over distended GB which required drainage. Aspirated 20mL (bilious) Post-Operative Diagnosis: Same as Pre-op Surgeon: Jake Boswell Assistant Front End Manager: Nikko Paige Anesthesiologist/FIREFIGHTER TYPE ONE: Dylan Styles Anesthesia: General Specimens Removed: Gallbladder Estimated Blood Loss (mls): 2 Fluid Volume Replaced (mls): 1,000 Operative Report Dictated: Yes
--- NOTE | 2019-08-31 13:27 | SURG ---
Surgery Drop Wire Builder Note Drop Wire Builder: Nikko Paige PA-C Date of Service: 08/31/19 Diagnosis: Acute cholecystitis / cholelithiasis Procedure: Laprascopic Cholecystectomy I was present for the entirety of the operative procedure. For further detail, please refer to operative report. Visit type - Case Type Case Type: ED Admission - Emergency Emergency Visit: Yes ED Registration Date: 08/31/19 Care time: The patient presented to the Emergency Department on the above date a nd was hospitalized for further evaluation of their emergent condition.
[2019-08-31] MEDS ORDERED: ONDANSETRON 4 MG/2 ML VIAL IVPUSH PRN (14:08)
[2019-08-31] MEDS ORDERED: PROMETHAZINE HCL 25 MG/1 ML VIAL IVPUSH PRN (14:08)
[2019-08-31] MEDS ORDERED: oxyCODONE HCL 5 MG TABLET PO PRN (14:08)
[2019-08-31] MEDS ORDERED: ONDANSETRON 4 MG/2 ML VIAL ONE (14:43)
[2019-08-31] MEDS: ACETAMINOPHEN 325 MG TABLET (FP) PO PRN ×2 (18:46→22:48)
[2019-08-31] MEDS: oxyCODONE HCL 5 MG TABLET PO PRN (18:46)
--- NOTE | 2019-08-31 20:16 | PN ---
Progress Note, Physician Chief Complaint: pt seen post op, is doing well, and awake, not in pain, not in distress, took ice chips, - Current Medication List Current Medications: Active Medications Acetaminophen (Tylenol -) 325 mg PO Q4H PRN PRN Reason: PAIN LEVEL 6-10 Last Admin: 08/31/19 18:46 Dose: 325 mg Documented by: Acetaminophen (Ofirmev Injection -) 1,000 mg IVPB Q6H PRN PRN Reason: PAIN LEVEL 6-10 Stop: 09/01/19 05:10 Sodium Chloride (Normal Saline -) 1,000 mls @ 75 mls/hr IV ASDIR KOBY Last Admin: 08/31/19 15:35 Dose: Not Given Documented by: Levothyroxine Sodium (Synthroid -) 112 mcg PO DAILY@0700 [facility] Ondansetron HCl (Zofran Injection) 4 mg IVPUSH Q6H PRN PRN Reason: NAUSEA AND/OR VOMITING Last Admin: 08/31/19 14:45 Dose: 4 mg Documented by: Oxycodone HCl (Roxicodone -) 5 mg PO Q4H PRN PRN Reason: PAIN LEVEL 6-10 Last Admin: 08/31/19 18:46 Dose: 5 mg Documented by: Oxycodone HCl (Roxicodone -) 5 mg PO Q4H PRN PRN Reason: PAIN LEVEL 1-5 Stop: 09/01/19 14:07 Promethazine HCl (Phenergan Injection -) 12.5 mg IVPUSH Q6H PRN PRN Reason: NAUSEA-FOR RESCUE AFTER 15 MIN - Objective Vital Signs: Vital Signs Temperature 97.4 F L 08/31/19 19:31 Pulse Rate 69 08/31/19 19:31 Respiratory Rate 20 08/31/19 19:31 Blood Pressure 120/70 08/31/19 19:31 O2 Sat by Pulse Oximetry (%) 96 08/31/19 15:26 Constitutional: Yes: Well Nourished, No Distress Eyes: Yes: Conjunctiva Clear, EOM Intact HENT: Yes: Atraumatic, Normocephalic Neck: Yes: Supple, Trachea Midline Cardiovascular: Yes: Regular Rate and Rhythm Respiratory: Yes: Regular, CTA Bilaterally Gastrointestinal: Yes: Soft, Other (diffusely tender,) Edema: No Peripheral Pulses WNL: Yes Neurological: Yes: WNL ...Motor Strength: WNL Psychiatric: Yes: WNL Labs: CBC, BMP 08/31/19 06:33 08/31/19 06:33 INR, PTT INR 0.98 (0.83-1.09) 08/31/19 08:18 Problem List - Problems (1) Abdominal pain Code(s): R10.9 - UNSPECIFIED ABDOMINAL PAIN Qualifiers: Abdominal location: right upper quadrant Qualified Code(s): R10.11 - Right upper quadrant pain (2) Cholecystitis Code(s): K81.9 - CHOLECYSTITIS, UNSPECIFIED Impression/Plan Impression/Plan: 49 y/o female PMH hypothyroidism and nephrolithiasis c/o abdominal pain consistent with cholelithiasis and biliary colic. # Cholelithiasis and biliary colic -s/p lap pankaj, spoke with the surgeon, pt can be dced home, spoke to pt, wants to go home in am, will watch, # Macrocytic anemia - b12/folate normal check fe studies, and fu with pmd as out pt for anemia ascencio, likely from dec po intake, Visit type - Emergency Visit Emergency Visit: No - New Patient This patient is new to me today: Yes Date on this admission: 08/31/19 - Critical Care Critical Care patient: No - Discharge Referral Referred to [facility] Med P.C[facility] No
[2019-09-01] MEDS: oxyCODONE HCL 5 MG TABLET PO PRN ×3 (04:26→15:07)
[2019-09-01] MEDS ORDERED: LEVOTHYROXINE NA 112 MCG TABLET (FP) PO SCH (07:00)
--- NOTE | 2019-09-01 07:50 | DS ---
Physical Exam: SUBJECTIVE: Patient seen and examined OBJECTIVE: Vital Signs Temperature 97.9 F 09/01/19 05:23 Pulse Rate 60 09/01/19 05:23 Respiratory Rate 20 09/01/19 05:23 Blood Pressure 113/70 09/01/19 05:23 O2 Sat by Pulse Oximetry (%) 96 08/31/19 21:00 PHYSICAL EXAM GENERAL: The patient is awake, alert, and fully oriented, in no acute distress. HEAD: Normal with no signs of trauma. EYES: PERRL, extraocular movements intact, sclera anicteric, conjunctiva clear. ENT: Ears normal, nares patent, oropharynx clear without exudates, moist mucous membranes. NECK: Trachea midline, full range of motion, supple. LUNGS: Breath sounds equal, clear to auscultation bilaterally, no wheezes, no crackles, no accessory muscle use. HEART: Regular rate and rhythm, S1, S2 without murmur, rub or gallop. ABDOMEN: all surgical ports c/d/i EXTREMITIES: 2+ pulses, warm, well-perfused, no edema. NEUROLOGICAL: Cranial nerves II through XII grossly intact. Normal speech, gait not observed. PSYCH: Normal mood, normal affect. SKIN: Warm, dry, normal turgor, no rashes or lesions noted. LABS CBC,CMP WBC 5.7 K/mm3 (4.0-10.0) 08/31/19 06:33 RBC 2.74 M/mm3 (3.60-5.2) L 08/31/19 06:33 Hgb 9.0 GM/dL (10.7-15.3) L 08/31/19 06:33 Hct 26.4 % (32.4-45.2) L 08/31/19 06:33 MCV 96.4 fl (80-96) H 08/31/19 06:33 MCH 33.0 pg (25.7-33.7) 08/31/19 06:33 MCHC 34.2 g/dl (32.0-36.0) 08/31/19 06:33 RDW 13.6 % (11.6-15.6) 08/31/19 06:33 Plt Count 368 K/MM3 (134-434) 08/31/19 06:33 MPV 6.9 fl (7.5-11.1) L 08/31/19 06:33 Absolute Neuts (auto) 3.3 K/mm3 (1.5-8.0) 08/31/19 06:33 Neutrophils % 57.8 % (42.8-82.8) 08/31/19 06:33 Lymphocytes % 32.7 % (8-40) 08/31/19 06:33 Monocytes % 4.8 % (3.8-10.2) 08/31/19 06:33 Eosinophils % 3.8 % (0-4.5) 08/31/19 06:33 Basophils % 0.9 % (0-2.0) 08/31/19 06:33 Nucleated RBC % 0 % (0-0) 08/31/19 06:33 Sodium 140 mmol/L (136-145) 08/31/19 06:33 Potassium 3.9 mmol/L (3.5-5.1) 08/31/19 06:33 Chloride 108 mmol/L (98-107) H 08/31/19 06:33 Carbon Dioxide 26 mmol/L (21-32) 08/31/19 06:33 Anion Gap 6 MMOL/L (8-16) L 08/31/19 06:33 BUN 10.1 mg/dL (7-18) 08/31/19 06:33 Creatinine 0.5 mg/dL (0.55-1.3) L 08/31/19 06:33 Est GFR (CKD-EPI)AfAm 131.72 08/31/19 06:33 Est GFR (CKD-EPI)NonAf 113.65 08/31/19 06:33 Random Glucose 88 mg/dL (74-106) 08/31/19 06:33 Calcium 8.2 mg/dL (8.5-10.1) L 08/31/19 06:33 Phosphorus 3.2 mg/dL (2.5-4.9) 08/31/19 06:33 Magnesium 2.1 mg/dL (1.8-2.4) 08/31/19 06:33 Total Bilirubin 0.8 mg/dL (0.2-1) 08/31/19 06:33 AST 20 U/L (15-37) 08/31/19 06:33 ALT 21 U/L (13-61) 08/31/19 06:33 Alkaline Phosphatase 49 U/L (45-117) 08/31/19 06:33 Total Protein 6.1 g/dl (6.4-8.2) L 08/31/19 06:33 Albumin 3.3 g/dl (3.4-5.0) L 08/31/19 06:33 Lipase 202 U/L (73-393) 08/30/19 22:47 Vitamin B12 379 pg/ml (193-986) 08/31/19 08:18 Serum Folate 28 ng/mL (3.1-17.5) H 08/31/19 08:18 Serum , Qual Negative 08/30/19 23:29 HOSPITAL COURSE: Date of Admission:08/31/19 Date of Discharge: 09/01/19 The patient was admitted to [facility] thru the ED for her abd pain. She was found to have an acute cholecystits. Patient taken to OR yesterday where a laprascopic cholecystectomy was performed. Transferred to PACU then MED-SURG for continued care. POD #0 she was started on a reg diet and tolerated. She was cleared to go home but wanted to stay until the morning. She ambulated the hallways unassisted. Voiding spontaneously. Narcotic and non-narcotic pain management control was achieved with an oral and IV approach. Jacqui-operative IV ABX were administered. DVT prophylaxis was achieved with SCDs and early ambulation. The discharge instructions and an oral pain management plan were reviewed with the patient. All questions answered. Above plan discussed with Dr. Boswell and Dr. Orozco and agreed. Minutes to complete discharge: 35 Visit type - Case Type Case Type: ED Admission
--- NOTE | 2019-09-01 08:15 | OP ---
DATE OF OPERATION: 08/31/2019 PREOPERATIVE DIAGNOSES: Cholelithiasis, biliary colic. POSTOPERATIVE DIAGNOSES: Acute cholecystitis, cholelithiasis, and symptomatic biliary colic. PROCEDURE: Laparoscopic cholecystectomy. SURGEON: Jake Boswell MD VIDEO ENGINEER: Nikko Paige PA-C ANESTHESIA: General. OPERATIVE FINDINGS: There was acute cholecystitis and cholelithiasis. The rest of the findings were unremarkable. DESCRIPTION OF PROCEDURE: The patient was placed on the operating room table in supine position. After the induction of general anesthesia, the patient's abdomen was prepped with ChloraPrep and draped in sterile fashion. Time-out was taken and then pneumoperitoneum established above the umbilicus using a Veress needle. Once 15 mm of intra-abdominal pressure was obtained, a 5-mm port was placed at the umbilicus. Additional lateral 5-mm ports and a subxiphoid 12-mm port were placed and laparoscopy carried out, and the previously noted findings were observed. The gallbladder was placed on cephalad and lateral traction, and dissection was begun at the neck of the gallbladder where the peritoneum was opened medially and laterally using blunt and sharp dissection and electrocautery. Dissection continued in the triangle of Calot where the cystic duct was identified coursing from the neck of the gallbladder distally to the common bile duct. It was dissected proximally and distally for length. Similarly, the artery was similarly identified and dissected. A critical view of safety was taken, and then the cystic duct divided proximally and distally using Endo Kuldeep after it was clipped twice proximally and distally with large hemoclips. The artery was similarly clipped and divided. Hemostasis was checked for and noted to be good and then the gallbladder was removed from the liver bed in a retrograde fashion using electrocautery. Prior to removal from the edge of the liver, hemostasis was again verified and then the gallbladder removed from the edge of the liver, placed in an EndoCatch, and brought out through the subxiphoid port. Pneumoperitoneum was reestablished, hemostasis verified again, and then the 5-mm lateral and subxiphoid ports were removed under laparoscopic vision without evidence of bleeding from the port sites. The umbilical port was removed and the pneumoperitoneum evacuated. All port sites were infiltrated with 0.5% Marcaine and the skin edges closed with 4-0 Biosyn in a subcuticular and continuous fashion. Steri-Strips and Band-Aid dressings were placed and the procedure terminated at this point and the patient aroused from general anesthesia and transferred to the post anesthesia care unit in stable condition awake and alert. ESTIMATED BLOOD LOSS: 10 mL. REPLACEMENTS: Crystalloid. DRAINS: None. SPECIMENS: Gallbladder and contents to pathology. I, Jake Boswell, was physically present in the operating room from the time the patient was placed on the operating room table until she was transferred to the post anesthesia care unit in my accompaniment. MD DAMARIS Strickland/[id number] MTDD
[2019-09-01] MEDS: ACETAMINOPHEN 325 MG TABLET (FP) PO PRN ×2 (09:41→15:07)
[2019-09-01 13:34] VITALS: BP 102/63; PULSE 69; TEMP 98.2
[2019-09-01] MEDS ORDERED: SODIUM CHLORIDE 0.9% 500 ML INFUS.BAG IV ONE (14:53)
--- NOTE | 2019-09-01 16:15 | PN ---
Physical Exam: SUBJECTIVE: Patient seen and examined at bedside, asking to go home, endorses improvement of abdominal pain. VSS, leukocytosis improved. OBJECTIVE: Vital Signs Period Temp Pulse Resp BP Sys/Matute Pulse Ox Last 24 Hr 97.4 F-98.4 F 57-69 18-20 102-131/63-76 96-99 GENERAL: AAox3, speaking in full sentences, comfortable, asking to go home HEAD: NCAT EYES: BRITT, EOMI, sclera anicteric, conjunctiva clear. No ptosis. ENT: Ears normal, nares patent, oropharynx clear without exudates, moist mucous membranes. NECK: Trachea midline, full range of motion, supple. LUNGS: CTAB , no wheezes, no crackles, no accessory muscle use. HEART: RRR, S1, S2 without murmur, rub or gallop. ABDOMEN: soft, mild tenderness RUQ, no guarding BS+, no HSM EXTREMITIES: 2+ pulses, warm, well-perfused, no edema. PSYCH: Normal mood, normal affect. SKIN: Warm, dry, normal turgor, no rashes or lesions noted Laboratory Results - last 24 hr 09/01/19 07:10 Iron 37 L TIBC 318 Iron Saturation 11 L Unsaturated IBC 281 H Ferritin 12.2 Active Medications Generic Name Dose Route Start Last Admin Trade Name Freq PRN Reason Stop Dose Admin Acetaminophen 325 mg 08/31/19 13:32 09/01/19 15:07 Tylenol - PO 325 mg Q4H PRN Administration PAIN LEVEL 6-10 Sodium Chloride 1,000 mls @ 75 mls/hr 08/31/19 15:34 08/31/19 15:35 Normal Saline - IV Not Given ASDIR KOBY Levothyroxine Sodium 112 mcg 09/01/19 07:00 09/01/19 06:13 Synthroid - PO 112 mcg DAILY@0700 KOBY Administration Ondansetron HCl 4 mg 08/31/19 14:08 08/31/19 14:45 Zofran Injection IVPUSH 4 mg Q6H PRN Administration NAUSEA AND/OR VOMITING Oxycodone HCl 5 mg 08/31/19 13:47 09/01/19 15:07 Roxicodone - PO 5 mg Q4H PRN Administration PAIN LEVEL 6-10 Promethazine HCl 12.5 mg 08/31/19 14:08 Phenergan Injection - IVPUSH Q6H PRN NAUSEA-FOR RESCUE AFTER 15 MIN ASSESSMENT/PLAN: 49 y/o F hypothyroidism and nephrolithiasis admitted for acute cholecystitis s/p lap pankaj POD#1. Acute cholecystitis s/p lap pankaj POD#1, tolerating PO, passing flatus, endorses improvement of abd. pain stable for DC as per Surgery team Follow up with Dr. Boswell (surgery clinic, full DC instruction, meds, follow up given by LEONARD El please see Surgical DC summary) PREM ferritin 12 Ferrous sulfate 325mg BID with Vit C follow w/ PCP Hypothyroidism cont. Synthroid follow w/ PCP Disposition: DC home with PCP follow up Visit type - Emergency Visit Emergency Visit: Yes ED Registration Date: 08/31/19 Care time: The patient presented to the Emergency Department on the above date and was hospitalized for further evaluation of their emergent condition. - New Patient This patient is new to me today: Yes Date on this admission: 09/01/19 - Critical Care Critical Care patient: No - Discharge Referral Referred to [facility] No
--- NOTE | 2019-09-02 18:17 | PATH ---
Surgical Pathology Report Patient Name: WILMA TRAN Med. Rec. #: [id number] /Age/Gender: 1970 (Age: 49) / F Account: [id number] Location: [address] [place] [address]/[facility] Taken: 08/31/2019 Received: 08/31/2019 Reported: 09/02/2019 Physicians: Jake Boswell MD Specimen(s) Received GALLBLADDER Clinical History Cholecystitis Final Diagnosis GALLBLADDER, LAPAROSCOPIC CHOLECYSTECTOMY: CHRONIC CHOLECYSTITIS WITH CHOLELITHIASIS. CALCIFICATIONS WITHIN MUCOSA IDENTIFIED Electronically Signed Filomena Cross M.D. Gross Description Received in formalin, labeled "gallbladder," is a 11.0 x 3.3 x 3.0 cm. gallbladder with a 0.2 cm. in length portion of cystic duct attached. The outer surface is dye-brown and varies from smooth to shaggy. The lumen contains dye-green, sludgelike bile as well as abundant green-yellow, irregular to fragmented choleliths ranging from 0.1-1.3 cm in greatest dimension. The mucosa is green and focally eroded. The wall of the gallbladder ranges from 0.1-0.7 cm. in thickness. Interactive Media Project Manager sections are submitted in one cassette. 09/01/2019 [facility]09/01/2019
== END 2019-09-01 18:00 | disposition home or self-care (01) | DRG 263 ==
LOC: JER 20:07 → JERBED 08-31 03:28 → J6S 08-31 10:50
PROVIDERS: ADMIT Internal Medicine
PROC: 0FT44ZZ Resection of Gallbladder, Percutaneous Endoscopic Approach (ICD-10-PCS; principal; 2019-08-31 15:30)
DX: K80.00 Calculus of gallbladder with acute cholecystitis without obstruction (principal); E03.9 Hypothyroidism, unspecified; D53.9 Nutritional anemia, unspecified; F12.10 Cannabis abuse, uncomplicated; D72.829 Elevated white blood cell count, unspecified
CPT/HCPCS: 36415; 71045-TC-FY; 74177-TC; 76705-TC; 80053; 81003; 82607; 82728; 82746; 83540; 83550; 83690; 83735; 84100; 84703; 85025; 85610; 85730; 86850; 86900; 86901; 87086; 88304-TC; 93005; 93010; 94760; 99285-25; J0131; J7030; Q9967